=== PATIENT | female | born 1985 | race American Indian/Alaskan Native ===

== ENCOUNTER 2017-01-18 19:20 | Emergency (ER) | payer BC ==
[2017-01-18 19:29] VITALS: BP 105/72; PULSE 94; RESP 18; TEMP 99.1; O2SAT 100
--- NOTE | 2017-01-18 20:02 | ED PDOC ---
Arrival/HPI - General Historian: Patient - History of Present Illness Time/Duration: Other (unknown) Symptom Onset: Other (unknown) Symptom Course: Unchanged Quality: Burning Severity Level: Mild Context: Home <Deena Chowdhury - Last Filed: 01/18/17 19:59> <Rick Catalan - Last Filed: 01/18/17 20:35> - General Chief Complaint: ENT Problem Time Seen by Provider: 01/18/17 19:59 - History of Present Illness Narrative History of Present Illness (Text): 01/18/17 19:59 31F w/no sig PMH evaluated for tongue lesion. Pt reports eating balsamic vinegar last night, noted burned sensation at tip of tongue. Noted tissue that was mobile at end of tongue, wanted to come in for evaluation. Admits to exhaustion due to recent . No other complaints. PMH: Recent childbirth PSH: CS x 1 All: Denies SH: Denies tobacco, ETOH or illicit drug use PMD: [place] (Denea Chowdhury) Past Medical History - Provider Review Nursing Documentation Reviewed: Yes - Infectious Disease Hx of Infectious Diseases: None - Reproductive Menopause: No - Psychiatric Hx Substance Use: No - Surgical History Hx Section: Yes - Anesthesia Hx Anesthesia: Yes Hx Anesthesia Reactions: No <Deena Chowdhury - Last Filed: 01/18/17 19:59> Family/Social History - Physician Review Nursing Documentation Reviewed: Yes Family/Social History: No Known Family HX Smoking Status: Unknown If Ever Smoked Hx Alcohol Use: No Hx Substance Use: No <Deena Chowdhury - Last Filed: 01/18/17 19:59> Allergies/Home Meds <Deena Chowdhury - Last Filed: 01/18/17 19:59> <Rick Catalan - Last Filed: 01/18/17 20:35> Allergies/Adverse Reactions: Allergies No Known Allergies Allergy (Verified 01/18/17 19:29) Home Medications: Home Meds Medication Instructions Recorded Confirmed Multivit/Folic Acid/I 1 tab PO DAILY 01/18/17 01/18/17 [ Plus] Review of Systems - Physician Review All systems were reviewed & negative as marked: Yes - Review of Systems Constitutional: Fatigue (taking care of ). absent: Normal Eyes: Normal ENT: Normal Respiratory: Normal Cardiovascular: Normal Gastrointestinal: Normal Musculoskeletal: Normal Skin: Other (extra tongue tissue at tip of tongue) Neurological: Normal <Deena Chowdhury - Last Filed: 01/18/17 19:59> Physical Exam Vital Signs Reviewed: Yes Temperature: Afebrile Blood Pressure: Normal Pulse: Regular Respiratory Rate: Normal Appearance: Positive for: Well-Appearing, Non-Toxic, Comfortable Pain Distress: None Mental Status: Positive for: Alert and Oriented X 3 - Systems Exam Head: Present: Atraumatic, Normocephalic Extroacular Muscles: Present: EOMI Conjunctiva: Present: Normal Mouth: Present: Moist Mucous Membranes, Normal Teeth. No: Normal Tounge ( tongue with small, mobile piece of tissue at tip, non bleeding) Nose (External): Present: Atraumatic Neck: Present: Normal Range of Motion Respiratory/Chest: Present: Clear to Auscultation, Good Air Exchange. No: Respiratory Distress, Accessory Muscle Use Cardiovascular: Present: Regular Rate and Rhythm, Normal S1, S2. No: Murmurs Abdomen: Present: Normal Bowel Sounds. No: Tenderness, Distention, Peritoneal Signs Back: Present: Normal Inspection Upper Extremity: Present: Normal Inspection. No: Cyanosis, Edema Lower Extremity: Present: Normal Inspection. No: Edema Neurological: Present: GCS=15, CN II-XII Intact, Speech Normal Skin: Present: Warm, Dry, Normal Color. No: Rashes Psychiatric: Present: Alert, Oriented x 3, Normal Insight, Normal Concentration <Deena Chowdhury - Last Filed: 01/18/17 19:59> Vital Signs Temp Pulse Resp BP Pulse Ox 01/18/17 19:25 99.1 F 94 H 18 105/72 100 Medical Decision Making <Deena Chowdhury - Last Filed: 01/18/17 19:59> <Rick Catalan - Last Filed: 01/18/17 20:35> ED Course and Treatment: 01/18/17 20:03 Pt seen/evaluated with ED attending- pt anxious regarding tongue tissue- reassurance rendered. Will refer to ENT. (Deena Chowdhury) 01/18/17 20:20 Patient seen and evaluated with medical logistics specialist.Agree with HPI,clinical assessment,treatment plan. (Rick Catalan) - PA / COMPONENT DESIGN ENGINEER / Resident Statement MD/DO has reviewed & agrees with the documentation as recorded. / has examined the patient and agrees with the treatment plan. <Rick Catalan - Last Filed: 01/18/17 20:35> Disposition/Present on Arrival - Present on Arrival Any Indicators Present on Arrival: No History of DVT/PE: No History of Uncontrolled Diabetes: No Urinary Catheter: No History of Decub. Ulcer: No History Surgical Site Infection Following: None - Disposition Have Diagnosis and Disposition been Completed?: Yes Disposition Time: 20:05 Patient Plan: Discharge <Deena Chowdhury - Last Filed: 01/18/17 19:59> <Rick Catalan - Last Filed: 01/18/17 20:35> - Disposition Diagnosis: Tongue abnormality Disposition: HOME/ ROUTINE Condition: STABLE Additional Instructions: Please call and make an appointment with Dr. Guzmán (ENT) for further evaluation. Referrals: Wade Sharma MD [Primary Care Provider] - Follow up with primary Rojelio Guzmán DO [Doctor Oste[facility]] - Follow up with primary Forms: [employer]estone (Greenlandic)
== END 2017-01-18 20:27 | disposition home or self-care (01) ==
LOC: ED 19:20
DX: K14.8 Other diseases of tongue (principal)

== ENCOUNTER 2017-11-20 15:35 | Emergency (ER) | payer BC ==
[2017-11-20 15:40] VITALS: BMI 27.4
--- NOTE | 2017-11-20 16:08 | ED PDOC ---
Arrival/HPI - General Chief Complaint: Medical Clearance Time Seen by Provider: 11/20/17 15:37 Historian: Patient - History of Present Illness Narrative History of Present Illness (Text): 11/20/17 16:04 32 y/o female, no significant pmh, nkda, c/o rt. sided neck pain with numbness/ tingling started around 5:30am this morning. Pt. 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 sided trapezius pain with numbness and tingling which she went to the [facility] urgent care for evaluation this afternoon. Pt. was send to the ER for evaluation from the urgent care. Pt. has no headache, no slurred speech, no chest pain or shortness of breath, no weakness, no palpitation, walking with normal gait and posture, no difficulty walking, no change in vision, no night sweat, no other medical or psychological complaints. Pt. also complaining that she has occasional eye twitching for the past 3 weeks as well which resolved currently. Past Medical History - Provider Review Nursing Documentation Reviewed: Yes - Infectious Disease Hx of Infectious Diseases: None - Psychiatric Hx Substance Use: No - Surgical History Hx Section: Yes - Anesthesia Hx Anesthesia: Yes Hx Anesthesia Reactions: No Family/Social History - Physician Review Nursing Documentation Reviewed: Yes Family/Social History: Unknown Family HX Smoking Status: Unknown If Ever Smoked Hx Alcohol Use: No Hx Substance Use: No Allergies/Home Meds Allergies/Adverse Reactions: Allergies No Known Allergies Allergy (Verified 11/20/17 15:40) Review of Systems - Review of Systems Constitutional: absent: Fatigue, Fevers Eyes: absent: Vision Changes ENT: absent: Hearing Changes Respiratory: absent: SOB, Cough Cardiovascular: absent: Chest Pain Gastrointestinal: absent: Abdominal Pain, Nausea, Vomiting Musculoskeletal: Neck Pain, Myalgias. absent: Arthralgias, Back Pain, Joint Swelling Skin: absent: Rash, Pruritis, Skin Lesions Neurological: absent: Headache, Dizziness Psychiatric: absent: Anxiety, Depression, Suicidal Ideation Physical Exam Vital Signs Reviewed: Yes Vital Signs Temp Pulse Resp BP Pulse Ox 11/20/17 17:30 98.4 F 70 16 97/63 L 100 Temperature: Afebrile Blood Pressure: Normal Pulse: Regular Respiratory Rate: Normal Appearance: Positive for: Well-Appearing, Non-Toxic, Comfortable Pain Distress: Moderate Mental Status: Positive for: Alert and Oriented X 3 - Systems Exam Head: Present: Atraumatic, Normocephalic, Other (no focal neurological deficits. ). No: Tenderness, Contusion, Swelling, Ecchymosis, Abrasion, Laceration Pupils: Present: PERRL Extroacular Muscles: Present: EOMI Conjunctiva: Present: Normal Ears: Present: NORMAL TM, Normal Canal. No: Erythema Mouth: Present: Moist Mucous Membranes, Normal Lips, Normal Tounge, Normal Teeth. No: Drooling Pharnyx: Present: Normal. No: ERYTHEMA, EXUDATE, TONSILS ENLARGED, Soft Palate/ Uvular Edema Nose (External): Present: Atraumatic. No: Abrasion, Contusion, Laceration Nose (Internal): Present: Normal Inspection, No Active Bleeding. No: Rhinorrhea , Septal Hematoma, Epistaxis Neck: Present: Normal Range of Motion, Paraspinal Tenderness (rt), Trachea Midline, Other (Cervical: +spasm and tenderness to the rt. paraspinal/trapezius muscle region with left paraspinal exam within mormal limit, FROM with pain upon rt. lateral movement, sensation intact, motor 5/5. ). No: Meningeal Signs , MIDLINE TENDERNESS, Lymphadenopathy Respiratory/Chest: Present: Clear to Auscultation, Good Air Exchange. No: Respiratory Distress, Accessory Muscle Use, Wheezes, Decreased Breath Sounds, Rales, Retracting, Rhonchi Cardiovascular: Present: Regular Rate and Rhythm, Normal S1, S2. No: Murmurs Abdomen: No: Tenderness, Distention, Peritoneal Signs, Rebound, Guarding Back: Present: Normal Inspection. No: CVA Tenderness, Midline Tenderness, Paraspinal Tenderness, Pain with Leg Raise, Decubitus Ulcer Upper Extremity: Present: Normal Inspection, Normal ROM, NORMAL PULSES, Neurovascularly Intact, Capillary Refill < 2s, Norm 2-Pt Discrimination. No: Cyanosis, Edema, Tenderness, Swelling, Erythema, Temperature Abnormalties, Deformity Lower Extremity: Present: Normal Inspection, NORMAL PULSES, Normal ROM, Neurovascularly Intact, Capillary Refill < 2 s. No: Edema, CALF TENDERNESS, Cyanosis, Miguel's Sign, Tenderness, Swelling, Erythema, Deformity, Temperature Abnormalties Neurological: Present: GCS=15, CN II-XII Intact, Speech Normal, Motor Func Grossly Intact, Gait Normal, Memory Normal, Other (NIHSS is zero, no drift, normal finger to nose test, normal heel to constantino test, bilateral upper and lower extremities with full sensation intact and equal to shap/dull along with motor 5 /5, no focal neurological deficits. ) Skin: Present: Warm, Dry, Normal Color. No: Rashes Psychiatric: Present: Alert, Oriented x 3, Normal Insight, Normal Concentration Medical Decision Making ED Course and Treatment: 11/20/17 17:02 -labs -CT head/neck -IV toradol/valium -Observe and reassess 11/20/17 19:30 -Urine hcg is negative -CT Head: Normal CT of the Head. No intracranial mass, hemorrhage or evidence of acute infarct. -CT Cervical: Possible muscular spasm. Otherwise unremarkable examination -RUE Venuous doppler: No sonographic evidence for deep venous thrombosis in the visualized segments of the right upper extremity. -Labs show no acute findings -Pt. feels much better, asymptomatic, no numbness or tingling, no focal neurological deficits, walking with normal gait and posture, request to be discharged home without further evaluation. -Discharge home with motrin, flexeril, heat compression, bed rest, follow up with your own pmd and neurologist within 2 days, return to the ER for any new or worsening signs or symptoms. - Lab Interpretations Lab Results: 11/20/17 18:07 11/20/17 18:07 Lab Results 11/20/17 18:07: Sodium 142, Potassium 4.5, Chloride 105, Carbon Dioxide 25, Anion Gap 17, BUN 13, Creatinine 0.9, Est GFR ( Amer) > 60, Est GFR (Non- Af Amer) > 60, Random Glucose 88, Calcium 9.2, Magnesium 2.0, Total Bilirubin 0.4, AST 21, ALT 24, Alkaline Phosphatase 63, Total Protein 8.0, Albumin 4.2, Globulin 3.8, Albumin/Globulin Ratio 1.1 11/20/17 18:07: WBC 4.6, RBC 4.40, Hgb 12.8, Hct 38.0, MCV 86.4, MCH 29.1, MCHC 33.7, RDW 13.0, Plt Count 280, MPV 9.4, Gran % 48.0 L, Lymph % (Auto) 39.0 H, Whitfield % (Auto) 11.2 H, Eos % (Auto) 1.1 L, Baso % (Auto) 0.7, Gran # 2.19, Lymph # (Auto) 1.8, Whitfield # (Auto) 0.5, Eos # (Auto) 0.1, Baso # (Auto) 0.03 - RAD Interpretation Radiology Orders: 11/20/17 16:02 HEAD W/O CONTRAST [CT] Stat DUPLEX UPPER EXTRM VEIN RIGHT [US] Stat 11/20/17 16:03 CERVICAL SPINE W/O CONTRAST [CT] Stat CT Head: PROCEDURE: CT HEAD WITHOUT CONTRAST. HISTORY: facial twitching numbness 3 weeks COMPARISON: Not available TECHNIQUE: Axial computed tomography images were obtained through the head/brain without intravenous contrast. Radiation dose: Total exam DLP = 1135.59 mGy-cm. This CT exam was performed using one or more of the following dose reduction techniques: Automated exposure control, adjustment of the mA and/or kV according to patient size, and/or use of iterative reconstruction technique. FINDINGS: HEMORRHAGE: No intracranial hemorrhage. BRAIN: Limited evaluation of posterior fossa due to patient motion artifact. No intracranial mass. No atrophy or chronic microvascular ischemic changes. VENTRICLES: Unremarkable. No hydrocephalus. CALVARIUM: Unremarkable. PARANASAL SINUSES: Unremarkable as visualized. No significant inflammatory changes. MASTOID AIR CELLS: Unremarkable as visualized. No inflammatory changes. OTHER FINDINGS: None. IMPRESSION: Normal CT of the Head. No intracranial mass, hemorrhage or evidence of acute infarct. CT Cervical: HISTORY: RUE numbness/tingling and pain COMPARISON: None available. TECHNIQUE: Axial computed tomography images were obtained of the cervical spine without the use of intravenous contrast. Coronal and sagittal reformatted images were created and reviewed. Radiation dose: Total exam DLP = 422.89 mGy-cm. This CT exam was performed using one or more of the following dose reduction techniques: Automated exposure control, adjustment of the mA and/or kV according to patient size, and/or use of iterative reconstruction technique. FINDINGS: VERTEBRAE: No fracture. Normal alignment. No destructive bony lesion. There is reversal of the normal lordotic curvature indicating possible muscular spasm. The atlantoaxial articulation and odontoid process are intact. DISCS/SPINAL CANAL/NEURAL FORAMINA: No significant central canal or neural foraminal stenosis. Discs heights are grossly preserved. PARASPINAL SOFT TISSUES: Unremarkable. OTHER FINDINGS: None. IMPRESSION: Possible muscular spasm. Otherwise unremarkable examination RUE Venuous doppler: The visualized rightinternal jugular vein is sonographically normal and compressible. No evidence of obstruction or thrombus is seen. The visualized segments of the right subclavian vein are patent with normal waveforms. No sonographic evidence of obstruction or thrombosis is seen. The visualized deep venous system of the proximal right upper extremity is sonographically normal and compressible. IMPRESSION: 1. No sonographic evidence for deep venous thrombosis in the visualized segments of the right upper extremity. Wind Farm Engineer: Radiologist - Medication Orders Current Medication Orders: Discontinued Medications Diazepam (Valium) 10 mg PO ONCE ONE PRN Reason: Protocol Stop: 11/20/17 16:03 Last Admin: 11/20/17 18:32 Dose: Not Given Non-Admin Reason: Patient Refused Sodium Chloride (Sodium Chloride 0.9%) 1,000 mls @ 999 mls/hr IV .Q1H1M STA Stop: 11/20/17 17:26 Last Admin: 11/20/17 17:54 Dose: 999 mls/hr eMAR Start Stop Document 11/20/17 17:54 [email or web address] (Rec: 11/20/17 17:55 [email or web address] [id number]) Intravenous Solution Start Date 11/20/17 Start Time 17:55 Ketorolac Tromethamine (Toradol) 30 mg IVP STAT STA Stop: 11/20/17 16:03 Last Admin: 11/20/17 19:10 Dose: 30 mg MAR Pain Assessment Document 11/20/17 19:10 [email or web address] (Rec: 11/20/17 19:11 [email or web address] [id number]) Pain Reassessment Is this a pain reassessment? No Sleep Is patient sleeping during reassessment? No Presence of Pain Presence of Pain Yes Pain Scale Used Pain Scale Used Numeric Location Left, Right or Bilateral Right Pain Location Body Site Generalized Description Description Constant Intensity of Pain at present 4 Pain Behavior Facial Grimacing Aggravating Factors Changing Position Alleviating Factors/Management Medication Techniques Alleviating Factors Medication IVP Administration Document 11/20/17 19:10 [email or web address] (Rec: 11/20/17 19:11 [email or web address] [id number]) Charges for Administration # of IVP Administrations 1 - PA / LICENSED LOAN OFFICER / Resident Statement MD/DO has reviewed & agrees with the documentation as recorded. Disposition/Present on Arrival - Present on Arrival Any Indicators Present on Arrival: No History of DVT/PE: No History of Uncontrolled Diabetes: No Urinary Catheter: No History of Decub. Ulcer: No History Surgical Site Infection Following: None - Disposition Have Diagnosis and Disposition been Completed?: Yes Diagnosis: Muscle spasm, Cervical radiculopathy Disposition: HOME/ ROUTINE Disposition Time: 17:41 Patient Plan: Discharge Patient Problems: Current Active Problems Problem Status Onset Muscle spasm Acute Cervical radiculopathy Acute Condition: IMPROVED Additional Instructions: -Discharge home with motrin, flexeril, heat compression, bed rest, follow up with your own pmd and neurologist within 2 days, return to the ER for any new or worsening signs or symptoms. Prescriptions: Cyclobenzaprine [Cyclobenzaprine HCl] 10 mg PO TID PRN #21 tab PRN Reason: Other Ibuprofen [Motrin] 600 mg PO TID PRN #21 tab PRN Reason: Other Referrals: Kory Mcclure MD [Staff Provider] - Follow up with primary [facility] [place]] - Follow up with primary Forms: [employer] (Latvian), WORK NOTE
[2017-11-20] MEDS ORDERED: Sodium Chloride 0.9% 1,000 ML IV STA (16:26)
--- NOTE | 2017-11-20 17:22 | US ---
PROCEDURE: Right upper extremity venous US CLINICAL HISTORY: Arm pain and swelling Evaluate for deep venous thrombosis. PHYSICIAN(S): Arya Bond M.D FINDINGS: The visualized rightinternal jugular vein is sonographically normal and compressible. No evidence of obstruction or thrombus is seen. The visualized segments of the right subclavian vein are patent with normal waveforms. No sonographic evidence of obstruction or thrombosis is seen. The visualized deep venous system of the proximal right upper extremity is sonographically normal and compressible. IMPRESSION: 1. No sonographic evidence for deep venous thrombosis in the visualized segments of the right upper extremity.
--- NOTE | 2017-11-20 17:30 | CT ---
Date of service: 11/20/2017 PROCEDURE: CT HEAD WITHOUT CONTRAST. HISTORY: facial twitching numbness 3 weeks COMPARISON: Not available TECHNIQUE: Axial computed tomography images were obtained through the head/brain without intravenous contrast. Radiation dose: Total exam DLP = 1135.59 mGy-cm. This CT exam was performed using one or more of the following dose reduction techniques: Automated exposure control, adjustment of the mA and/or kV according to patient size, and/or use of iterative reconstruction technique. FINDINGS: HEMORRHAGE: No intracranial hemorrhage. BRAIN: Limited evaluation of posterior fossa due to patient motion artifact. No intracranial mass. No atrophy or chronic microvascular ischemic changes. VENTRICLES: Unremarkable. No hydrocephalus. CALVARIUM: Unremarkable. PARANASAL SINUSES: Unremarkable as visualized. No significant inflammatory changes. MASTOID AIR CELLS: Unremarkable as visualized. No inflammatory changes. OTHER FINDINGS: None. IMPRESSION: Normal CT of the Head. No intracranial mass, hemorrhage or evidence of acute infarct.
[2017-11-20 17:31] VITALS: RESP 16; O2SAT 100
--- NOTE | 2017-11-20 17:35 | CT ---
Date of service: 11/20/2017 PROCEDURE: CT Cervical Spine without contrast HISTORY: RUE numbness/tingling and pain COMPARISON: None available. TECHNIQUE: Axial computed tomography images were obtained of the cervical spine without the use of intravenous contrast. Coronal and sagittal reformatted images were created and reviewed. Radiation dose: Total exam DLP = 422.89 mGy-cm. This CT exam was performed using one or more of the following dose reduction techniques: Automated exposure control, adjustment of the mA and/or kV according to patient size, and/or use of iterative reconstruction technique. FINDINGS: VERTEBRAE: No fracture. Normal alignment. No destructive bony lesion. There is reversal of the normal lordotic curvature indicating possible muscular spasm. The atlantoaxial articulation and odontoid process are intact. DISCS/SPINAL CANAL/NEURAL FORAMINA: No significant central canal or neural foraminal stenosis. Discs heights are grossly preserved. PARASPINAL SOFT TISSUES: Unremarkable. OTHER FINDINGS: None. IMPRESSION: Possible muscular spasm. Otherwise unremarkable examination
[2017-11-20 18:32] LABS: ALB/GLOB RATIO 1.1 (1.1-1.8); ALBUMIN 4.2 g/dL (3.0-4.8); ALT/SGPT 24 U/L (7-56); AST/SGOT 21 U/L (14-36); BLOOD UREA NITROGEN 13 mg/dL (7-21); CALCIUM 9.2 mg/dL (8.4-10.5); GFR NON-AFRICAN AMERICAN > 60
[2017-11-20 18:35] LABS: BASO # 0.03 K/mm3 (0.0-2.0); BASO % 0.7 % (0.0-3.0); EOS # 0.1 (0.0-0.7); EOS % 1.1 % (1.5-5.0); GRAN # 2.19 (1.4-6.5); HEMOGLOBIN 12.8 g/dL (12.0-16.0); LYMPH # 1.8 (1.2-3.4); MEAN CELL VOLUME 86.4 fl (80.0-105.0); MEAN CORPUSCULAR HEMOGLOBIN 29.1 pg (25.0-35.0); MEAN CORPUSCULAR HGB CONC 33.7 g/dl (31.0-37.0); MEAN PLATELET VOLUME 9.4 fl (7.0-11.0); MONO # 0.5 (0.1-0.6); MONO % 11.2 % (1.0-6.0); RBC 4.4 10^6/uL (3.5-6.1); WHITE BLOOD COUNT 4.6 10^3/ul (4.5-11.0)
[2017-11-20 19:36] VITALS: BP 110/69; PULSE 63; TEMP 98.1
== END 2017-11-20 19:40 | disposition home or self-care (01) ==
LOC: ED 15:35
DX: M54.12 Radiculopathy, cervical region (principal); M62.838 Other muscle spasm
CPT/HCPCS: 70450; 72125; 80053; 83735; 85025; 93971; 96374; 99282; J1885; J7030